=== PATIENT | male | born 1955 | race Hispanic/Latino ===

== ENCOUNTER 2018-11-19 21:43 | Emergency (ER) | payer BC ==
[2018-11-19 21:43] VITALS: BMI 30.4
[2018-11-19 22:05] VITALS: RESP 18
--- NOTE | 2018-11-19 22:07 | ED PDOC ---
Arrival/HPI <Haley Gaytan PA-C - Last Filed: 11/22/18 22:21> - General Historian: Patient - History of Present Illness Narrative History of Present Illness (Text): 11/19/18 22:05 63 year old male, whose past medical history includes neuropathy, hypertension, hypercholestremia, and GERD, presents to the emergency department complaining of 103 fever today. Patient states he has a toothache on the right lower molar where it radiates to the right jaw and right ear. Patient states he called his dentist from [facility] who prescribed Tylenol Codeine because he is not able to see patient until tomorrow. Patient last took the Tylenol Codeine 5-6 hours ago. The patient denies any chills, chest pain, shortness of breath, abdominal pain, nausea, vomiting, diarrhea, urinary symptoms, back pain, neck pain, headache, dizziness, or any other complaints. Symptom Onset: Gradual Symptom Course: Unchanged Activities at Onset: Light Context: Home <Benigno Lugo - Last Filed: 11/23/18 09:45> - General Chief Complaint: Dental Pain Time Seen by Provider: 11/19/18 21:58 Past Medical History - Provider Review Nursing Documentation Reviewed: Yes - Infectious Disease Hx of Infectious Diseases: None - Tetanus Immunization Tetanus Immunization: Unknown - Cardiac Hx Hypertension: Yes - Pulmonary Hx Respiratory Disorders: No - Neurological Hx Neurological Disorder: No - HEENT Hx HEENT Disorder: No - Renal Hx Renal Disorder: No - Endocrine/Metabolic Hx Endocrine Disorders: No - Hematological/Oncological Hx Blood Disorders: No - Integumentary Hx Dermatological Disorder: No - Musculoskeletal/Rheumatological Hx Arthritis: Yes Other/Comment: demyelinating degenarative peripheral neuropathy - Gastrointestinal Hx Gastrointestinal Disorders: Yes Hx Gastroesophageal Reflux: Yes - Genitourinary/Gynecological Hx Genitourinary Disorders: No - Psychiatric Hx Psychophysiologic Disorder: No Hx Anxiety: No Hx Bipolar Disorder: No Hx Depression: No Hx Emotional Abuse: No Hx Hallucinations: No Hx Panic Disorder: No Hx Post Traumatic Stress Disorder: No Hx Psychosis: No Hx Physical Abuse: No Hx Schizophrenia: No Hx Sexual Abuse: No Hx Substance Use: No - Surgical History Hx Orthopedic Surgery: Yes (KNEE) - Anesthesia Hx Anesthesia: Yes Hx Anesthesia Reactions: No Hx Malignant Hyperthermia: No - Suicidal Assessment Feels Threatened In Home Enviroment: No <Benigno Lugo Last Filed: 11/23/18 09:45> Family/Social History - Physician Review Nursing Documentation Reviewed: Yes Family/Social History: No Known Family HX Smoking Status: Former Smoker Hx Alcohol Use: Yes Hx Substance Use: No Hx Substance Use Treatment: No <Benigno Lugo - Last Filed: 11/23/18 09:45> Allergies/Home Meds <Haley Gaytan PA-C - Last Filed: 11/22/18 22:21> <Benigno Lugo - Last Filed: 11/23/18 09:45> Allergies/Adverse Reactions: Allergies Penicillins Allergy (Verified 11/19/18 21:58) ANAPHYLAXIS Home Medications: Home Meds Medication Instructions Recorded Confirmed Esomeprazole Magnesium [Nexium] 1 tab PO DAILY 10/08/13 11/19/18 Gabapentin [Neurontin] 600 mg PO TID 10/08/13 11/19/18 Diltiazem HCl [Cardizem] 180 mg PO DAILY 09/26/15 11/19/18 Acetaminophen with Codeine 1 tab PO Q6H PRN 11/19/18 11/19/18 [Tylenol with Codeine #3 Tablet] Amitriptyline [Elavil] 50 mg PO HS 11/19/18 11/19/18 Ibuprofen [Motrin Tab] 600 mg PO Q6H PRN 11/19/18 11/19/18 Losartan/Hydrochlorothiazide 1 tab PO DAILY 11/19/18 11/19/18 [Losartan-Hctz 100-25 mg Tab] Review of Systems - Physician Review All systems were reviewed & negative as marked: Yes - Review of Systems Constitutional: Fevers. absent: Other (Chills) ENT: Other (Right toothache radiates to right jaw and right ear) Respiratory: absent: SOB Cardiovascular: absent: Chest Pain Gastrointestinal: absent: Abdominal Pain, Diarrhea, Nausea, Vomiting Genitourinary Male: absent: Dysuria, Frequency, Hematuria Musculoskeletal: absent: Back Pain, Neck Pain Neurological: absent: Headache, Dizziness <Benigno Lugo - Last Filed: 11/23/18 09:45> Physical Exam Vital Signs Temp Pulse Resp BP Pulse Ox 11/20/18 00:35 99.5 F 90 18 124/85 96 11/19/18 23:30 99.7 F H 98 H 18 139/86 95 11/19/18 22:20 102 F H 11/19/18 21:55 100.8 F H 106 H 18 154/96 H 95 <Haley Gaytan PA-C - Last Filed: 11/22/18 22:21> Vital Signs Reviewed: Yes Vital Signs Temp Pulse Resp BP Pulse Ox 11/19/18 21:55 100.8 F H 106 H 18 154/96 H 95 Temperature: Febrile Blood Pressure: Hypertensive Pulse: Tachycardic Respiratory Rate: Normal Appearance: Positive for: Well-Appearing, Non-Toxic, Comfortable Pain Distress: None Mental Status: Positive for: Alert and Oriented X 3 - Systems Exam Head: Present: Atraumatic, Normocephalic Pupils: Present: PERRL Extroacular Muscles: Present: EOMI Conjunctiva: Present: Normal Ears: Present: Normal, NORMAL TM Mouth: Present: Moist Mucous Membranes, Other (right lower dentition tender to palpation ) Neck: Present: Normal Range of Motion Respiratory/Chest: Present: Clear to Auscultation, Good Air Exchange. No: Respiratory Distress, Accessory Muscle Use Cardiovascular: Present: Regular Rate and Rhythm, Normal S1, S2. No: Murmurs Neurological: Present: GCS=15, CN II-XII Intact, Speech Normal Skin: Present: Warm, Dry, Normal Color. No: Rashes Psychiatric: Present: Alert, Oriented x 3, Normal Insight, Normal Concentration <Benigno Lugo - Last Filed: 11/23/18 09:45> Medical Decision Making - Lab Interpretations Microbiology Results: Microbiology Results 11/19/18 23:00 Blood-Venous Blood Culture - Preliminary Gram Positive Cocci 11/19/18 23:00 Blood-Venous Gram Stain - Final 11/19/18 22:21 Blood-Venous Blood Culture - Preliminary NO GROWTH AFTER 48 HOURS Lab Results: 11/19/18 22:25 11/19/18 22:25 Lab Results 11/19/18 22:25: Sodium 137, Potassium 3.8, Chloride 101, Carbon Dioxide 27, Anion Gap 13, BUN 17, Creatinine 1.1, Est GFR ( Amer) > 60, Est GFR (Non- Af Amer) > 60, Random Glucose 135 H, Calcium 9.0, Total Bilirubin 0.6, AST 40, ALT 37, Alkaline Phosphatase 92, Total Protein 7.9, Albumin 4.1, Globulin 3.8, Albumin/Globulin Ratio 1.1 11/19/18 22:25: WBC 7.3, RBC 5.07, Hgb 14.9, Hct 44.3, MCV 87.4, MCH 29.4, MCHC 33.6, RDW 14.2, Plt Count 264, MPV 9.7, Gran % 79.3 H, Lymph % (Auto) 6.5 L, Haralson % (Auto) 13.5 H, Eos % (Auto) 0.3 L, Baso % (Auto) 0.4, Gran # 5.81, Lymph # (Auto) 0.5 L, Haralson # (Auto) 1.0 H, Eos # (Auto) 0.0, Baso # (Auto) 0.03 11/19/18 22:21: Influenza Typ A,B (EIA) Negative for flu a/b - RAD Interpretation Radiology Orders: 11/19/18 22:10 MAXILLOFACIAL W/O CONTRAST [CT] Stat - Medication Orders Current Medication Orders: Discontinued Medications Acetaminophen (Tylenol 325mg Tab) 650 mg PO STAT STA Stop: 11/19/18 22:12 Last Admin: 11/19/18 22:20 Dose: 650 mg MAR Pain/Vitals Document 11/19/18 22:20 RG (Rec: 11/19/18 22:20 [id number]) Sleep Is patient sleeping during reassessment? No Vitals Temperature (97.6 F-99.6 F) 102 F Temperature Source Oral Acetaminophen (Tylenol 325mg Tab) 650 mg PO STAT STA Stop: 11/19/18 22:13 Last Admin: 11/19/18 22:50 Dose: Not Given Non-Admin Reason: Patient Refused Clindamycin Phosphate (Cleocin) 600 mg in 50 mls @ 50 mls/hr IVPB STAT STA; Protocol Stop: 11/19/18 23:12 Last Admin: 11/19/18 22:49 Dose: 50 mls/hr eMAR Start Stop Document 11/19/18 22:49 RG (Rec: 11/19/18 22:50 [email or web address]) Intravenous Solution Start Date 11/19/18 Start Time 22:49 <Haley Gaytan PA-C - Last Filed: 11/22/18 22:21> ED Course and Treatment: 11/19/18 22:07 Impression: 63 year old male presents complaining of 103 fever associated with right lower molar pain that radiates to right jaw and right ear. Plan: -- CT Maxillofacial -- labs -- Cleocin, Tylenol -- Blood Culture -- Influenza A B -- Reassess and disposition Progress Notes: EXAM: CT Maxillofacial without Intravenous Contrast. Electronically signed on Nov 20, 2018 12:28:05 AM EST by: Calvin Edgar M.D IMPRESSION: 1. Several bubbles of air are noted adjacent to right wisdom tooth suspicious for an abscess. 2. Bilateral ethmoid and maxillary sinusitis is noted. 11/20/18 01:12 On reevaluation the patient is in no acute distress. I have discussed the results and plan with the patient, who expresses understanding. Patient given the opportunity to ask question, all questions were answered and there is agreement with the plan to discharge the patient home. Patient is stable for discharge. Patient was instructed to follow up with physician/clinic in 1-2 days or return if symptoms persist/worsen or new concerning symptoms arise. - Lab Interpretations I have reviewed the lab results: Yes <Benigno Lugo - Last Filed: 11/23/18 09:45> - Scribe Statement The provider has reviewed the documentation as recorded by the Nathan De La Cruz Provider Scribe Attestation: All medical record entries made by the Scribe were at my direction and personally dictated by me. I have reviewed the chart and agree that the record accurately reflects my personal performance of the history, physical exam, medical decision making, and the department course for this patient. I have also personally directed, reviewed, and agree with the discharge instructions and disposition. <Benigno Lugo - Last Filed: 11/23/18 09:45> Disposition/Present on Arrival - Notes Notes (Text): 11/22/18 22:21 Pt called, his Palma answered, she states that the patient is sleeping, blood cx results d/w her, notified of gram + cocci in chains d/w her. She states that the patient no longer has a fever, he went to his dentist, who referred him to an oral surgeon and had his tooth removed, his facial swelling has decreased. advised to have the patient f/u with his pmd Dr. Amanda for outpt repeat of blood cx. She verbalize understanding of instructions and will make sure that the patient follows up. <Haley Gaytan PA-C - Last Filed: 11/22/18 22:21> - Present on Arrival Any Indicators Present on Arrival: No History of DVT/PE: No History of Uncontrolled Diabetes: No Urinary Catheter: No History of Decub. Ulcer: No History Surgical Site Infection Following: None - Disposition Have Diagnosis and Disposition been Completed?: Yes Disposition Time: 01:10 <Benigno Lugo - Last Filed: 11/23/18 09:45> - Disposition Diagnosis: Dental abscess Disposition: HOME/ ROUTINE Condition: IMPROVED Discharge Instructions (ExitCare): Tooth Abscess (DC) Additional Instructions: follow up with your dentist in am Prescriptions: Clindamycin [Cleocin] 300 mg PO TID #21 cap Forms: [facility] (Maori), WORK NOTE
[2018-11-19 22:46] LABS: BASO # 0.03 K/mm3 (0.0-2.0); BASO % 0.4 % (0.0-3.0); EOS % 0.3 % (1.5-5.0); GRAN # 5.81 (1.4-6.5); GRAN % 79.3 % (50.0-68.0); HEMOGLOBIN 14.9 g/dL (14.0-18.0); LYMPH # 0.5 (1.2-3.4); LYMPH % 6.5 % (22.0-35.0); MEAN CELL VOLUME 87.4 fl (80.0-105.0); MEAN CORPUSCULAR HEMOGLOBIN 29.4 pg (25.0-35.0); MEAN CORPUSCULAR HGB CONC 33.6 g/dl (31.0-37.0); MEAN PLATELET VOLUME 9.7 fl (7.0-11.0); MONO % 13.5 % (1.0-6.0); RBC 5.07 10^6/uL (3.5-6.1); RED CELL DISTRIBUTION WIDTH 14.2 % (11.5-14.5); WHITE BLOOD COUNT 7.3 10^3/uL (4.5-11.0)
[2018-11-19 22:47] LABS: ALB/GLOB RATIO 1.1 (1.1-1.8); ALBUMIN 4.1 g/dL (3.0-4.8); ALT/SGPT 37 U/L (7-56); AST/SGOT 40 U/L (17-59); BLOOD UREA NITROGEN 17 mg/dL (7-21); GFR NON-AFRICAN AMERICAN > 60
[2018-11-19] MEDS: Clindamycin 600mg/50ml D5W 600 MG/50 ML VIAL IVPB STA (22:49)
[2018-11-20 00:35] VITALS: BP 124/85; PULSE 90; TEMP 99.5; O2SAT 96
--- NOTE | 2018-11-20 10:00 | CT ---
Date of service: 11/19/2018 PROCEDURE: CT MAXILLOFACIAL BONES WITHOUT CONTRAST HISTORY: rt dental pain COMPARISON: None available. TECHNIQUE: Contiguous axial CT images of the maxillofacial bones were obtained. Coronal and sagittal reformats were generated. Radiation dose: Total exam DLP = 864.82 mGy-cm. This CT exam was performed using one or more of the following dose reduction techniques: Automated exposure control, adjustment of the mA and/or kV according to patient size, and/or use of iterative reconstruction technique. FINDINGS: NASAL BONES: Unremarkable. ORBITS: Unremarkable. PARANASAL SINUSES/ MASTOIDS: Bilateral ethmoid and maxillary mucoperiosteal sinus disease. MAXILLA: Several air bubbles noted in the this in the of the right within tooth suspicious for an abscess. MANDIBLE/ TEMPOROMANDIBULAR JOINTS: Unremarkable. SKULL BASE: Unremarkable. TEMPORAL BONES: Middle ears and mastoid grossly unremarkable. OTHER FINDINGS: None. IMPRESSION: Several air bubbles noted in the this in the of the right within tooth suspicious for an abscess. Recommend dental consultation.
== END 2018-11-20 01:16 | disposition home or self-care (01) ==
LOC: ED 21:43
DX: K04.7 Periapical abscess without sinus (principal); I10 Essential (primary) hypertension; Z87.891 Personal history of nicotine dependence; E78.00 Pure hypercholesterolemia, unspecified

== ENCOUNTER 2019-03-19 14:34 | Outpatient (CLI) | payer BC | END 2019-03-19 14:35 | disposition home or self-care (01) | LOC: CARDIO 14:34 ==

== ENCOUNTER 2019-04-11 16:35 | Inpatient (IN) | payer BC ==
[2019-04-11 16:38] VITALS: BMI 31.1
[2019-04-11] MEDS ORDERED: Sodium Chloride 0.9% 1,000 ML IV SCH (17:00)
--- NOTE | 2019-04-11 17:00 | ED PDOC ---
Arrival/HPI - General Chief Complaint: GI Problem Time Seen by Provider: 04/11/19 16:38 - History of Present Illness Narrative History of Present Illness (Text): 04/11/19 16:58 A 64 year old male, whose past medical history includes hypertension and herni ated discs presents to the ED complaining of lower abdominal pain since this morning. Patient reports associated bloating and bright red GI bleed. Patient notes he had a colonoscopy 3 years ago, which was normal. Patient denies any fevers, chills, headache, dizziness, chest pain, shortness of breath, dyspnea on exertion, cough, nausea, vomiting, back pain, neck pain, or any other complaints. PMD: Dr. Amanda GI: Dr. Lu [employer] Supervisor: Dr. Flores Time/Duration: 24 hours Symptom Onset: Gradual Symptom Course: Unchanged Activities at Onset: Light Context: Home Past Medical History - Provider Review Nursing Documentation Reviewed: Yes - Infectious Disease Hx of Infectious Diseases: None - Tetanus Immunization Tetanus Immunization: Unknown - Cardiac Hx Hypertension: Yes - Pulmonary Hx Respiratory Disorders: No - Neurological Hx Neurological Disorder: No - HEENT Hx HEENT Disorder: No - Renal Hx Renal Disorder: No - Endocrine/Metabolic Hx Endocrine Disorders: No - Hematological/Oncological Other/Comment: Monoclonal gammopathy of undetermined significance (MGUS) - Integumentary Hx Dermatological Disorder: No - Musculoskeletal/Rheumatological Hx Arthritis: Yes Other/Comment: demyelinating degenarative peripheral neuropathy - Gastrointestinal Hx Gastrointestinal Disorders: Yes Hx Gastroesophageal Reflux: Yes - Genitourinary/Gynecological Hx Genitourinary Disorders: No - Psychiatric Hx Psychophysiologic Disorder: No Hx Anxiety: No Hx Bipolar Disorder: No Hx Depression: No Hx Emotional Abuse: No Hx Hallucinations: No Hx Panic Disorder: No Hx Post Traumatic Stress Disorder: No Hx Psychosis: No Hx Physical Abuse: No Hx Schizophrenia: No Hx Sexual Abuse: No Hx Substance Use: No - Surgical History Hx Orthopedic Surgery: Yes (KNEE) - Anesthesia Hx Anesthesia: Yes Hx Anesthesia Reactions: No Hx Malignant Hyperthermia: No - Suicidal Assessment Feels Threatened In Home Enviroment: No Family/Social History - Physician Review Nursing Documentation Reviewed: Yes Family/Social History: Unknown Family HX Smoking Status: Former Smoker Hx Alcohol Use: Yes Frequency of alcohol use: Socially Hx Substance Use: No Hx Substance Use Treatment: No Allergies/Home Meds Allergies/Adverse Reactions: Allergies Penicillins Allergy (Verified 04/11/19 16:46) ANAPHYLAXIS Home Medications: Home Meds Medication Instructions Recorded Confirmed Diltiazem HCl [Cardizem] 180 mg PO DAILY 09/26/15 04/11/19 Amitriptyline [Elavil] 50 mg PO HS 11/19/18 04/11/19 Losartan/Hydrochlorothiazide 1 tab PO DAILY 11/19/18 04/11/19 [Losartan-Hctz 100-25 mg Tab] Fluticasone/Vilanterol 100/25 1 puff NEB DAILY 04/11/19 04/11/19 [Breo Ellipta 100-25 MCG INH] Gabapentin [Neurontin] 600 mg PO TID 04/11/19 04/11/19 Review of Systems - Physician Review All systems were reviewed & negative as marked: Yes - Review of Systems Constitutional: absent: Fatigue Eyes: absent: Vision Changes ENT: absent: Hearing Changes Respiratory: absent: SOB, Cough Cardiovascular: absent: Chest Pain Gastrointestinal: Abdominal Pain, Hematochezia. absent: Nausea, Vomiting Genitourinary Male: absent: Dysuria, Hematuria Musculoskeletal: absent: Back Pain, Neck Pain Skin: absent: Rash Neurological: absent: Headache, Dizziness Endocrine: absent: Diaphoresis Hemo/Lymphatic: absent: Adenopathy Psychiatric: absent: Anxiety, Depression Physical Exam Vital Signs Reviewed: Yes Vital Signs Temp Pulse Resp BP Pulse Ox 04/11/19 16:37 97.9 F 95 H 18 143/90 96 Temperature: Afebrile Blood Pressure: Normal Pulse: Regular Respiratory Rate: Normal Appearance: Positive for: Well-Appearing, Non-Toxic, Comfortable Pain Distress: None Mental Status: Positive for: Alert and Oriented X 3 - Systems Exam Head: Present: Atraumatic, Normocephalic Pupils: Present: PERRL Extroacular Muscles: Present: EOMI Conjunctiva: Present: Normal Respiratory/Chest: Present: Clear to Auscultation, Good Air Exchange. No: Respiratory Distress, Accessory Muscle Use Cardiovascular: Present: Regular Rate and Rhythm, Normal S1, S2. No: Murmurs Abdomen: Present: Tenderness (left side), Guarding. No: Rebound Rectal: Present: Gross Blood, Other (Guaiac positive). No: Hemorrhoids, Fissures Neurological: Present: GCS=15, CN II-XII Intact, Speech Normal Psychiatric: Present: Alert, Oriented x 3, Normal Insight, Normal Concentration Medical Decision Making ED Course and Treatment: 04/11/19 17:03 Impression: A 64 year old male presents to the ED for abdominal pain with associated rectal bleeding. Differential Diagnosis included but are not limited to: Diverticulitis vs diverticulosis vs GI bleed. Plan: -- EKG -- Labs -- Chest X-Ray -- Protonix injection -- IV Fluids -- Reassess and disposition Prior Visits: Notes and results from previous visits were reviewed. Patient was last seen in the emergency department on Progress Notes: Rectal exam chaperoned by scribe. 04/11/19 17:35 Chest X-Ray IMPRESSION: No active pulmonary disease. 04/11/19 19:[address] Pain controlled. Signed out to Dr. Singh to f/u CT, reevaluate and disposition. - RAD Interpretation Radiology Orders: 04/11/19 16:52 CHEST PORTABLE [RAD] Stat - Medication Orders Current Medication Orders: Sodium Chloride (Sodium Chloride 0.9%) 1,000 mls @ 100 mls/hr IV .Q10H NITIN Discontinued Medications Pantoprazole Sodium (Protonix Inj) 80 mg IVP STAT STA Stop: 04/11/19 16:53 - Scribe Statement The provider has reviewed the documentation as recorded by the Nathan Olmstead Provider Scribe Attestation: All medical record entries made by the Scribe were at my direction and per sonally dictated by me. I have reviewed the chart and agree that the record accurately reflects my personal performance of the history, physical exam, medical decision making, and the department course for this patient. I have also personally directed, reviewed, and agree with the discharge instructions and disposition. Disposition/Present on Arrival - Present on Arrival Any Indicators Present on Arrival: No History of DVT/PE: No History of Uncontrolled Diabetes: No Urinary Catheter: No History of Decub. Ulcer: No History Surgical Site Infection Following: None - Disposition Have Diagnosis and Disposition been Completed?: Yes Diagnosis: GI bleed Disposition Time: 19:33 Condition: FAIR Referrals: Brandyn Amanda MD [Primary Care Provider] - Follow up with primary Forms: [email or web address] (Thai)
[2019-04-11 17:14] LABS: BASO # 0.05 K/mm3 (0.0-2.0); BASO % 0.3 % (0.0-3.0); EOS # 0.1 (0.0-0.7); EOS % 0.5 % (1.5-5.0); HEMOGLOBIN 15.8 g/dL (14.0-18.0); LYMPH # 1.4 (1.2-3.4); LYMPH % 7.7 % (22.0-35.0); MEAN CELL VOLUME 87.1 fl (80.0-105.0); MEAN CORPUSCULAR HEMOGLOBIN 29.2 pg (25.0-35.0); MEAN CORPUSCULAR HGB CONC 33.5 g/dl (31.0-37.0); MEAN PLATELET VOLUME 9.5 fl (7.0-11.0); MONO # 1.9 (0.1-0.6); MONO % 10.5 % (1.0-6.0); RBC 5.41 10^6/uL (3.5-6.1); RED CELL DISTRIBUTION WIDTH 14.7 % (11.5-14.5); WHITE BLOOD COUNT 18.2 10^3/uL (4.5-11.0)
--- NOTE | 2019-04-11 17:16 | RAD ---
Date of service: 04/11/2019 HISTORY: Abdominal pain COMPARISON: 10/08/2013. FINDINGS: LUNGS: The lungs are well inflated and clear. PLEURA: No pleural effusions or pneumothorax. CARDIOVASCULAR: The heart is normal in size. No aortic atherosclerotic calcifications present. OSSEOUS STRUCTURES: Within normal limits for the patient's age. VISUALIZED UPPER ABDOMEN: Normal. OTHER FINDINGS: None. IMPRESSION: No active pulmonary disease.
[2019-04-11 17:22] LABS: INR 1.05; PARTIAL THROMBOPLASTIN TIME 31.8 Seconds (26.9-38.3); PROTHROMBIN TIME 11.7 SECONDS (9.4-12.5)
[2019-04-11 17:25] LABS: ALB/GLOB RATIO 1.1 (1.1-1.8); ALBUMIN 4.5 g/dL (3.0-4.8); ALT/SGPT 32 U/L (7-56); AMYLASE 87 U/L (35-125); AST/SGOT 39 U/L (17-59); BLOOD UREA NITROGEN 16 mg/dL (7-21); CALCIUM 9.9 mg/dL (8.4-10.5); GFR NON-AFRICAN AMERICAN > 60; LIPASE 100 U/L (23-300)
[2019-04-11] MEDS ORDERED: Iohexol 240 (50 ml) ONE (18:08)
[2019-04-11] MEDS ORDERED: Iohexol 350 MG/100 ML VIAL ONE (20:04)
[2019-04-11] MEDS ORDERED: metroNIDAZOLE IV 500 mg/100 ml 500 MG/100 ML BAG IVPB STA (21:56)
[2019-04-11] MEDS ORDERED: Aztreonam 1 Gm in NS 100mL 100 ML IVPB STA (21:56)
[2019-04-11] MEDS ORDERED: Sodium Chloride 0.9% 1,000 ML IV ONE (21:56)
[2019-04-11] MEDS ORDERED: Lactated Ringer's 1,000 ML IV SCH (22:15)
--- NOTE | 2019-04-11 22:15 | ED PDOC ---
Physical Exam Vital Signs Temp Pulse Resp BP Pulse Ox 04/11/19 20:53 86 18 138/83 96 04/11/19 16:37 97.9 F 95 H 18 143/90 96 Medical Decision Making ED Course and Treatment: 04/11/19 20:00 Case endorsed to me by Dr. Bailey. Patient currently awaiting CT Abd/Pelvis res ults, reevaluate and disposition. 04/11/2019 21:23 Abd/Pelvis CT IMPRESSION: 1. Severe left colitis as above. Pericolonic stranding and fluid in the left paracolic gutter. Follow up with colonoscopy is recommended. 2. There are several scattered diverticuli noted involving descending and sigmoid colon. No evidence of acute diverticulitis. 3. Prostate gland is moderately enlarged and contains calcifications. Please correlate with PSA levels. Dictator: Calvin Edgar MD 04/11/19 22:[address] Amanda, who states to give patient antibiotics. Patient to be admitted to med/surg. - Lab Interpretations Lab Results: PT 11.7 SECONDS (9.4-12.5) 04/11/19 17:00 INR 1.05 04/11/19 17:00 APTT 31.8 Seconds (26.9-38.3) 04/11/19 17:00 Total Bilirubin 0.6 mg/dL (0.2-1.3) 04/11/19 17:00 AST 39 U/L (17-59) 04/11/19 17:00 ALT 32 U/L (7-56) 04/11/19 17:00 Alkaline Phosphatase 87 U/L (38-126) 04/11/19 17:00 Total Protein 8.5 g/dL (5.8-8.3) H 04/11/19 17:00 Albumin 4.5 g/dL (3.0-4.8) 04/11/19 17:00 Globulin 4.0 gm/dL 04/11/19 17:00 Albumin/Globulin Ratio 1.1 (1.1-1.8) 04/11/19 17:00 Amylase 87 U/L (35-125) 04/11/19 17:00 Lipase 100 U/L (23-300) 04/11/19 17:00 - RAD Interpretation Radiology Orders: 04/11/19 16:52 CHEST PORTABLE [RAD] Stat 04/11/19 17:29 ABD PELVIS PO & IV CONTRAST [CT] Stat - Medication Orders Current Medication Orders: Sodium Chloride (Sodium Chloride 0.9%) 1,000 mls @ 100 mls/hr IV .Q10H NITIN Last Admin: 04/11/19 17:08 Dose: 100 mls/hr eMAR Start Stop Document 04/11/19 17:08 GMD (Rec: 04/11/19 17:08 GMD [id number]) Intravenous Solution Start Date 04/11/19 Start Time 17:08 Aztreonam (Azactam 1 Gm) 100 mls @ 100 mls/hr IVPB STAT STA; Protocol Stop: 04/11/19 22:55 Metronidazole (Flagyl) 500 mg in 100 mls @ 100 mls/hr IVPB STAT STA; Protocol Stop: 04/11/19 22:55 Sodium Chloride (Sodium Chloride 0.9%) 1,000 mls @ 125 mls/hr IV .Q8H ONE Stop: 04/12/19 05:55 Discontinued Medications Pantoprazole Sodium (Protonix Inj) 80 mg IVP STAT STA Stop: 04/11/19 16:53 Last Admin: 04/11/19 17:08 Dose: 80 mg IVP Administration Document 04/11/19 17:08 GMD (Rec: 04/11/19 17:09 GMD [id number]) Charges for Administration # of IVP Administrations 1 - Scribe Statement The provider has reviewed the documentation as recorded by the Nathan Rodriguez Provider Scribe Attestation: All medical record entries made by the Kimberlyibakash were at my direction and personally dictated by me. I have reviewed the chart and agree that the record accurately reflects my personal performance of the history, physical exam, medical decision making, and the department course for this patient. I have also personally directed, reviewed, and agree with the discharge instructions and disposition. Disposition/Present on Arrival - Present on Arrival Any Indicators Present on Arrival: No History of DVT/PE: No History of Uncontrolled Diabetes: No Urinary Catheter: No History of Decub. Ulcer: No History Surgical Site Infection Following: None - Disposition Have Diagnosis and Disposition been Completed?: Yes Diagnosis: GI bleed Disposition: HOSPITALIZED Disposition Time: 22:00 Patient Problems: Current Active Problems Problem Status Onset GI bleed Acute Condition: FAIR
[2019-04-11 22:30] LABS: VENOUS BLOOD GAS PO2 45 mm/Hg (30-55); VENOUS BLOOD PH 7.38 (7.32-7.43)
--- NOTE | 2019-04-11 23:08 | CP.PCM.HP ---
History of Present Illness - History of Present Illness History of Present Illness: Niall Arrington, PGY1 H&P for Dr. Amanda cc: "lower abdominal pain and BRBPR" Patient is a 64 year old male, whose PMHx includes HTN, HLD, GERD, Peripheral Neuropathy, and herniated discs who presented to the ED complaining of lower abdominal pain with associated bloating and bright red blood per rectum since this morning. Patient said the last time he had these symptoms was many years ago. He denies any recent fevers, chills, nausea, vomiting, diarrhea, urinary frequency/urgency/dysuria, unintentional weight loss, fatigue, night sweats. No recent antibiotic use. Patient says that his last colonoscopy was with his GI doctor (Dr. Lu) about 2 years ago and it did not show malignancy however it did note diverticulosis. No changes in diet, otherwise prior to this admission bowel and bladder has been regular. A full 12 point ROS was conducted and unremarkable except as stated above. PMD: Dr. Amanda GI: Dr. Lu Prepleater: Dr. Flores PMHx: HTN, HLD, GERD, Peripheral Neuropathy, and herniated discs PSHx: knee surgery (10 years ago) Meds: see JAN Allergies: PCN SocialHx: social drinker. Former smoker for 30 years, quit 15 years ago. Denies illicit drug use. Lives with family. FamHx: non-contributory. No GI malignancy in family. Present on Admission - Present on Admission Any Indicators Present on Admission: No Review of Systems - Review of Systems All systems: reviewed and no additional remarkable complaints except (as per HPI) Past Patient History - Infectious Disease Hx of Infectious Diseases: None - Tetanus Immunizations Tetanus Immunization: Unknown - Past Social History Smoking Status: Former Smoker - CARDIAC Hx Hypertension: Yes - PULMONARY Hx Respiratory Disorders: No - NEUROLOGICAL Hx Neurological Disorder: No - HEENT Hx HEENT Problems: No - RENAL Hx Chronic Kidney Disease: No - ENDOCRINE/METABOLIC Hx Endocrine Disorders: No - HEMATOLOGICAL/ONCOLOGICAL Other/Comment: Monoclonal gammopathy of undetermined significance (MGUS) - INTEGUMENTARY Hx Dermatological Problems: No - MUSCULOSKELETAL/RHEUMATOLOGICAL Hx Arthritis: Yes Other/Comment: demyelinating degenarative peripheral neuropathy - GASTROINTESTINAL Hx Gastrointestinal Disorders: Yes Hx Gastroesophageal Reflux: Yes - GENITOURINARY/GYNECOLOGICAL Hx Genitourinary Disorders: No - PSYCHIATRIC Hx Psychophysiologic Disorder: No Hx Anxiety: No Hx Bipolar Disorder: No Hx Depression: No Hx Emotional Abuse: No Hx Hallucinations: No Hx Panic Symptoms: No Hx Post Traumatic Stress Disorder: No Hx Psychosis: No Hx Physical Abuse: No Hx Schizophrenia: No Hx Sexual Abuse: No Hx Substance Use: No - SURGICAL HISTORY Hx Orthopedic Surgery: Yes (KNEE) - ANESTHESIA Hx Anesthesia: Yes Hx Anesthesia Reactions: No Hx Malignant Hyperthermia: No Meds Allergies/Adverse Reactions: Allergies Allergy/AdvReac Type Severity Reaction Status Date / Time Penicillins Allergy ANAPHYLAXIS Verified 04/11/19 16:46 Physical Exam - Constitutional Appears: Non-toxic, No Acute Distress - Head Exam Head Exam: ATRAUMATIC, NORMAL INSPECTION, NORMOCEPHALIC - Eye Exam Eye Exam: EOMI, Normal appearance - ENT Exam ENT Exam: Mucous Membranes Moist - Respiratory Exam Respiratory Exam: Clear to Auscultation Bilateral. absent: Accessory Muscle Use, Chest Wall Tenderness, Rales, Rhonchi, Wheezes, Respiratory Distress, Stridor - Cardiovascular Exam Cardiovascular Exam: RRR, +S1, +S2 - GI/Abdominal Exam GI & Abdominal Exam: Normal Bowel Sounds, Soft, Tenderness (Mild tenderness to palpation of the LLQ ). absent: Firm, Guarding, Hernia, Rebound, Rigid - Rectal Exam Rectal Exam: Bloody Stool (Gross blood was noted. ). absent: Hemorrhoids Additional comments: No anal fissures noted - Extremities Exam Extremities exam: Positive for: normal capillary refill, normal inspection, pedal pulses present. Negative for: calf tenderness, tenderness - Back Exam Back exam: absent: CVA tenderness (L), CVA tenderness (R) - Neurological Exam Neurological exam: Alert, CN II-XII Intact, Normal Gait, Oriented x3 - Psychiatric Exam Psychiatric exam: Normal Affect, Normal Mood - Skin Skin Exam: Dry, Intact, Normal Color, Warm Results - Vital Signs Recent Vital Signs: Last Vital Signs Temp 97.9 F 04/11/19 16:37 Pulse 86 04/11/19 20:53 Resp 18 04/11/19 20:53 BP 138/83 04/11/19 20:53 Pulse Ox 96 04/11/19 20:53 - Labs Result Diagrams: 04/11/19 17:00 04/11/19 17:00 Labs: Laboratory Results - last 24 hr 04/11/19 04/11/1904/11/19 17:00 17:00 17:00 WBC 18.2 H D RBC 5.41 Hgb 15.8 Hct 47.1 MCV 87.1 MCH 29.2 MCHC 33.5 RDW 14.7 H Plt Count 328 MPV 9.5 Neut % (Auto) 81.0 H Lymph % (Auto) 7.7 L Jefferson % (Auto) 10.5 H Eos % (Auto) 0.5 L Baso % (Auto) 0.3 Lymph # (Auto) 1.4 Jefferson # (Auto) 1.9 H Eos # (Auto) 0.1 Baso # (Auto) 0.05 Absolute Neuts (auto) 14.75 H PT 11.7 INR 1.05 APTT 31.8 pO2 VBG pH VBG pCO2 VBG HCO3 VBG Total CO2 VBG O2 Sat (Calc) VBG Base Excess VBG Potassium Glucose Lactate FiO2 Sodium 139 Potassium 4.0 Chloride 98 Carbon Dioxide 31 Anion Gap 14 BUN 16 Creatinine 1.0 Est GFR ( Amer) > 60 Est GFR (Non-Af Amer) > 60 Random Glucose 93 Calcium 9.9 Total Bilirubin 0.6 AST 39 ALT 32 Alkaline Phosphatase 87 Total Protein 8.5 H Albumin 4.5 Globulin 4.0 Albumin/Globulin Ratio 1.1 Amylase 87 Lipase 100 Venous Blood Potassium Blood Type Blood Type Confirm Antibody Screen Crossmatch BBK History Checked 04/11/19 04/11/19 04/11/19 17:00 19:30 22:10 WBC RBC Hgb Hct MCV MCH MCHC RDW Plt Count MPV Neut % (Auto) Lymph % (Auto) Jefferson % (Auto) Eos % (Auto) Baso % (Auto) Lymph # (Auto) Jefferson # (Auto) Eos # (Auto) Baso # (Auto) Absolute Neuts (auto) PT INR APTT pO2 45 VBG pH 7.38 VBG pCO2 49.0 VBG HCO3 29.0 H VBG Total CO2 30.5 H VBG O2 Sat (Calc) 82.9 H VBG Base Excess 3.0 H VBG Potassium 3.3 L Glucose 94 Lactate 1.3 FiO2 21.0 Sodium 133.0 Potassium Chloride 99.0 Carbon Dioxide Anion Gap BUN Creatinine Est GFR ( Amer) Est GFR (Non-Af Amer) Random Glucose Calcium Total Bilirubin AST ALT Alkaline Phosphatase Total Protein Albumin Globulin Albumin/Globulin Ratio Amylase Lipase Venous Blood Potassium 3.3 L Blood Type A POSITIVE Blood Type Confirm A POSITIVE Antibody Screen Negative Crossmatch See Detail BBK History Checked No verified bt Assessment & Plan - Assessment and Plan (Free Text) Assessment: Patient is a 64 year old male, whose PMHx includes HTN, HLD, GERD, Peripheral Neuropathy, and herniated discs who presented to the ED complaining of lower abdominal pain with associated bloating and bright red blood per rectum since this morning. CT A/P showed severe left colitis and several diverticuli. Patient will be admitted to med/surg. Plan: LLQ Abdominal Pain and BRBPR 2/2 Left Sided Colitis and Divertulosis - flagyl and aztreonam for antibx coverage - Liquid diet, advance diet as tolerated - IVF with LR @ 100cc/hr - zofran prn - PTX 40mg IV BID - f/u blood cx - Leukocytosis 18.2, continue to monitor - Hgb 15.8 - stable at this time. Type and screen; and transfer pRBC prn - Toradol 15mg IVP q6 prn for pain control - coag panel wnl - repeat cbc and cmp in morning - orthostatic vital signs - FOBT - frequent vital signs - PSA level - GI on consult (Dr. Lu) - ID on consult (Dr. Machado) - CT A/P w/ PO and IV contrast: severe left colitis. Pericolonic stranding and fluid in the left paracolic gutter. Follow up colonoscopy recommended. Several scattered diverticuli noted in descending and sigmoid colon. No acute diverticulitis. Moderately enlarged prostate gland. HTN - resume home med cardizem Peripheral Neuropathy - resume home med gabapentin and amitriptyline ppx: - SCD - PTX 40mg IV BID Diet: Liquid Dispo: Monitor patient closely on med/surg. Further recs from GI. Case was discussed and reviewed with Attending Physician, Dr. Amanda
--- NOTE | 2019-04-12 01:00 | HP ---
DATE OF EXAM: 04/11/2019 HISTORY OF PRESENT ILLNESS: The patient is a 64-year-old male who presented to the [place] emergency room. According to the triage note, the patient complained of abdominal pain for 3 days with 5 episodes of bleeding in the stool and blood per rectum. According to the ER physician evaluation, the patient presented complaining of lower abdominal pain since morning and also bloating and bright red blood per rectum times five episodes. REVIEW OF SYSTEMS: A 14 system review was done pertinent positive, negative dictated above. The patient was seen lying in the stretcher in stretcher #6. CODE STATUS: Full code. LIVING WILL ADVANCE DIRECTIVE: None. Height is 5 feet 8 inches. Weight is 205. ALLERGIES: PENICILLIN. SOCIAL HISTORY: Positive for former smoking and alcohol use. Denies substance abuse. Denies any communicable transmissible disease. Denies any sexual behavior. PRESENT MEDICATIONS: The patient is on Cardizem CD 180 mg daily, Hyzaar 125 mg daily, Neurontin 600 mg three times a day, Elavil 50 mg at bedtime, and Breo Ellipta 1 puff daily. The patient is on IV immunoglobulin monthly at [facility] for history of combined immune deficiency polyneuropathy. 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 Past medical history is also significant for history of combined immune deficiency peripheral neuropathy, history of monoclonal gammopathy of unknown significance, history of knee surgery, history of former smoker, and history of social alcohol use. The patient's past medical history is also significant for history of thyroid nodules, history of IgM monoclonal gammopathy, history of IgM kappa monoclonal gammopathy, history of right tooth abscess in 2019, history of questionable chronic cholecystitis, history of diverticulosis, history of cholelithiasis with contracted gallbladder, history of L4-L5 right-sided lateral disk protrusion, history of degenerative disk disease and foraminal stenosis of the cervical spine, history of left ventricular ejection fraction of 65%, history of grade 1 abnormal relaxation pattern of the echocardiogram, history of moderately sclerotic aortic valve, history of mildly thickened mitral valve, history of [id number] mitral regurgitation, history of mild tricuspid regurgitation and mild pulmonary hypertension with right ventricular systolic pressure of 40 mmHg, history of mild pulmonic valvular regurgitation, history of uncontrolled hypertension, history of hypovitaminosis D, history of hypertriglyceridemia, history of questionable exertional angina, history of venous stasis of the lower extremity, history of endoscopy, colonoscopy, history of esophagitis, gastritis, history of negative colonoscopy, history of gastrointestinal bleeding, history of right knee arthroscopic surgery, history of exercise-induced chest pain, and history of prediabetes. PHYSICAL EXAMINATION: GENERAL: The patient is seen and examined. VITAL SIGNS: T-max 97.9, heart rate 86-95, blood pressure 143/90 and 138/83, respirations 18, and O2 sat 96%. HEENT: Head; normocephalic and atraumatic. HEENT examination shows pinkish pale conjunctivae. Anicteric sclerae. Dry oral mucosa. NECK: No neck rigidity. CHEST: Kyphosis. LUNGS: Shows no audible crackle, rales, or wheezing. CARDIOVASCULAR: S1 and S2, regular rhythm. Questionable soft systolic murmur left sternal border, right second intercostal space, left second intercostal space. NEUROLOGIC: The patient is alert, awake, and oriented x3. Cranial nerves II through XII intact. Gait examination is not tested. ABDOMEN: Soft. Positive bowel sound. Positive left lower quadrant, left periumbilical, left upper quadrant, and left periumbilical tenderness. Positive voluntary guarding noted. No rebound tenderness noted. No questionable left costovertebral angle tenderness noted. EXTREMITIES: Show trace swelling of the lower extremity. No calf tenderness. No Homans' sign. MUSCULOSKELETAL: Shows a body mass index of 31.2. DIAGNOSTIC DATA: WBC 18.2, hemoglobin/hematocrit 15.8 and 47.1, platelet 328, and granulocytes 81% segs. PT/PTT 11.7 and 31.8. VBG shows a pH of 7.38. Lactate is 1.3. Sodium 139, potassium 4, chloride 98, CO2 of 31, anion gap 14, BUN 16, creatinine 1, GFR greater than 60, glucose 93, and calcium 9.9. LFTs are normal. Total protein of 8.5 with a normal of 8.3. Amylase and lipase are normal. The patient was typed and crossmatched for 2 units PRBC. The patient had a chest x-ray done, which was negative for any active disease, questionable slight cardiomegaly noted. The patient had a CT scan of the abdomen and pelvis done in the emergency room. CAT scan results noted. TREATMENT IN THE EMERGENCY ROOM: The patient was treated in the emergency room with IV fluid and IV Protonix. Blood cultures were ordered. The patient's CAT scan results were reviewed, which was done with oral and IV contrast. IMPRESSION AND PLAN: 1. Left-sided lower abdominal pain with hematochezia. 2. Severe left-sided colitis with left colonic thick-walled with involvement from the splenic flexure through the rectum with luminal narrowing with pericolonic stranding and fluid in the left paracolic gutter with several descending and sigmoid colon diverticulosis. 3. Left paracolic gutter small fluid. 4. Prostatomegaly and prostate calcification. 5. Rectal bleeding with hematochezia. 6. History of hypertension. 7. History of mild pulmonary hypertension. 8. History of hyperlipidemia. 9. History of hypovitaminosis D. 10. 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 The patient will be admitted today to [facility]. The patient has been ordered serial labs typed and crossmatched, PRBC ordered. The patient has been ordered stool for occult blood. The patient has been ordered serial CBC and blood cultures have been ordered. Consultation, Gastroenterology and Infectious Disease. The patient has been typed and crossmatched. The patient has been empirically started on Azactam 1 g IV every 8 hours since THE PATIENT IS PENICILLIN ALLERGIC and Flagyl 500 IV every 8 hours. The patient is started on IV fluid, IV proton pump inhibitor 40 mg IV every 12 hours, and Tylenol p.r.n. The patient was placed on clear liquid diet, Zofran 4 mg IV every 4 hours p.r.n., and incentive spirometry. EKG was ordered in the emergency room, we are awaiting results. Liquid diet has been ordered, SCDs and MIGUE stockings has been ordered. Stool occult blood has been ordered. The patient has been explained about the details of his medical condition, need for hospitalization, all diagnostic test was explained to the patient at length and all questions concerned answered which he acknowledged and understand. At this time, the patient is awaiting for a bed on the floor. The patient was in ER bed 6. At present, the patient's further management will be as per the therapeutic intervention as dictated above and as per the MAR. In addition, the patient's further management will be dependent upon the patient's clinical condition, hemodynamic status, and as per the patient response to therapeutic intervention, as per the patient's diagnostic test results and as per recommendation by Gastroenterology and Infectious Disease and other physicians involved in the care of the patient. Dictated and electronically signed, not read. Brandyn Amanda MD
[2019-04-12] MEDS: metroNIDAZOLE IV 500 mg/100 ml 500 MG/100 ML BAG IVPB SCH ×3 (05:20→22:11)
[2019-04-12] MEDS ORDERED: Aztreonam 1 Gm in NS 100mL 100 ML IVPB SCH (06:00)
[2019-04-12] MEDS: Lactated Ringer's 1,000 ML IV SCH ×2 (06:06→17:11)
[2019-04-12 07:33] LABS: BASO # 0.02 K/mm3 (0.0-2.0); BASO % 0.2 % (0.0-3.0); EOS # 0.1 (0.0-0.7); EOS % 0.4 % (1.5-5.0); HEMOGLOBIN 14.1 g/dL (14.0-18.0); LYMPH # 1.4 (1.2-3.4); LYMPH % 11.8 % (22.0-35.0); MEAN CELL VOLUME 87.1 fl (80.0-105.0); MEAN CORPUSCULAR HEMOGLOBIN 28.3 pg (25.0-35.0); MEAN CORPUSCULAR HGB CONC 32.5 g/dl (31.0-37.0); MEAN PLATELET VOLUME 9.5 fl (7.0-11.0); MONO # 0.6 (0.1-0.6); MONO % 5.5 % (1.0-6.0); RBC 4.98 10^6/uL (3.5-6.1); RED CELL DISTRIBUTION WIDTH 14.9 % (11.5-14.5); WHITE BLOOD COUNT 11.5 10^3/uL (4.5-11.0)
[2019-04-12 07:52] LABS: LDL CHOLESTEROL 86 mg/dL (0-129)
[2019-04-12 07:59] LABS: FREE T4 0.87 ng/dL (0.78-2.19)
[2019-04-12 08:04] LABS: ALB/GLOB RATIO 1.1 (1.1-1.8); ALBUMIN 3.6 g/dL (3.0-4.8); ALT/SGPT 30 U/L (7-56); AST/SGOT 32 U/L (17-59); BILIRUBIN,DIRECT 0.2 mg/dL (0.0-0.4); BLOOD UREA NITROGEN 11 mg/dL (7-21); CALCIUM 8.7 mg/dL (8.4-10.5); GFR NON-AFRICAN AMERICAN > 60; HDL CHOLESTEROL 33 mg/dL (29-60)
--- NOTE | 2019-04-12 08:11 | CT ---
Date of service: 04/11/2019 PROCEDURE: CT Abdomen and Pelvis with contrast HISTORY: abd pain r/o diverticulitis/osis gi bleed COMPARISON: None available. TECHNIQUE: CT scan of the abdomen and pelvis was performed after administration of intravenous contrast. Oral contrast was administered. Coronal and sagittal reformatted images were obtained. Contrast dose: 100 mL Omnipaque 350 Radiation dose: Total exam DLP = 973.39 mGy-cm. This CT exam was performed using one or more of the following dose reduction techniques: Automated exposure control, adjustment of the mA and/or kV according to patient size, and/or use of iterative reconstruction technique. FINDINGS: LOWER THORAX: There is dependent atelectasis in the right lung base. There is a 5 mm subpleural nodule in the right lateral lung base. The visualized left lung is clear. LIVER: Normal in size with homogeneous enhancement. No gross lesion or ductal dilatation. GALLBLADDER AND BILE DUCTS: Well distended. No calcified gallstones, wall thickening or pericholecystic fluid. PANCREAS: Normal in size with homogeneous enhancement. No gross lesion or ductal dilatation. SPLEEN: Normal in size and appearance. ADRENALS: No discrete nodule in the right adrenal gland. There is a 9 mm indeterminate nodule in the left adrenal gland with density in the range of 66 HU. KIDNEYS AND URETERS: Normal in size with homogeneous enhancement. No hydronephrosis. No solid mass. VASCULATURE: No aortic aneurysm. There are aortic atherosclerotic calcifications present. BOWEL: The small bowel loops are normal in caliber. The colon is grossly normal in appearance. No bowel wall thickening or obstruction. APPENDIX: Normal appendix. PERITONEUM: No free fluid. No free air. LYMPH NODES: No enlarged lymph nodes. BLADDER: Well distended and normal in appearance. REPRODUCTIVE: The prostate gland is normal in size with central coarse calcifications. BONES: No acute fracture. Within normal limits for the patient's age. OTHER FINDINGS: There is a small sliding hiatal hernia. There are bilateral small fat containing inguinal hernias. IMPRESSION: Findings are consistent with acute non-specific infectious/inflammatory colitis. No evidence for perforation or abscess. A preliminary report was provided by [employer].
[2019-04-12] MEDS: diltiaZEM 180 mg/24 Hours CD Cap PO SCH (09:34)
[2019-04-12] MEDS ORDERED: Non Formulary Medication (Losartan/Hydrochlorothiazide [Losartan-Hctz 100-25 Mg Tab] 1 TAB PO SCH (10:00)
[2019-04-12] MEDS: Meropenem IV 1 gm in NS 1 GM/50 ML BAG IVPB SCH ×3 (10:20→22:14)
[2019-04-12] MEDS ORDERED: Magnesium Sulfate 2 gm/50 ml 2 GM/50 ML BAG IVPB ONE (11:51)
[2019-04-12] MEDS ORDERED: Morphine 2 mg/ml ISec IVP PRN (11:52)
[2019-04-12] MEDS: FLUTICASONE NEB SCH (17:01)
[2019-04-12] MEDS: VILANTEROL NEB SCH (17:01)
--- NOTE | 2019-04-12 18:20 | CON ---
DATE: 04/12/2019 GASTROENTEROLOGY CONSULTATION REQUESTING PHYSICIAN: Dr. Amanda. REASON FOR CONSULTATION: I have been asked to see this 64-year-old male with a history of hypertension, COPD, combined immune deficiency, neuropathy, who comes to the hospital with one-day history of lower abdominal pain followed by several episodes of rectal bleeding. He last had a colonoscopy approximately two years ago. He has a history of diverticulosis. CT scan of the abdomen and pelvis performed in the emergency room revealed mural thickening of the left colon from the rectum to the splenic flexure with some pericolonic stranding and fluid in the left paracolic gutter as well as diverticulosis in the descending and sigmoid colon. The patient states that his abdominal pain is improved. He had one episode of rectal bleeding last night. He denies any recent travel or ingestion of unusual foods. PAST MEDICAL HISTORY: As above. Again, he has a history of hypertension, GERD, diverticulosis, COPD, immunodeficiency syndrome, monoclonal gammopathy, herniated discs and peripheral neuropathy as well as diverticulosis. SOCIAL HISTORY: He is a former cigarette smoker. He smoked for 30 years, but quit 15 years ago. He denies alcohol abuse. PAST SURGICAL HISTORY: Notable for knee surgery. FAMILY HISTORY: Noncontributory. REVIEW OF SYSTEMS: A 14-point review of systems is notable for lower abdominal pain and rectal bleeding. MEDICATIONS AT HOME: Include Breo Ellipta, gabapentin, losartan, hydrochlorothiazide, Cardizem. PHYSICAL EXAMINATION: GENERAL: Well-developed male lying in bed in no acute distress. VITAL SIGNS: Reveal temperature of 97.9, blood pressure 128/69, heart rate of 82, BMI is 31.2. HEENT: Reveal sclerae to be white. Conjunctivae pink. NECK: Supple. CHEST: Lungs are clear. HEART: Exam reveals regular rate and rhythm. ABDOMEN: Soft. There is mild suprapubic tenderness. There is no rebound. There is no guarding. EXTREMITIES: Show no edema. LABORATORY DATA: Reveal on admission to the hospital his white blood cell count is 18.2, now it is 11.5; hemoglobin 14.1; platelet count 278,000. Electrolytes reveal potassium of 3.4; AST, ALT, BUN, creatinine, bicarb were all normal. 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 RECOMMENDATIONS: 1. Continue on clear liquid diet. 2. Check stool for C&S, O&P and C. diff. 3. Continue IV meropenem. Benigno Lu MD MTDD
--- NOTE | 2019-04-12 21:04 | CON ---
DATE OF CONSULTATION: 04/12/2019 The patient is seen in the emergency room by Dr. Calvin Singh yesterday. CHIEF COMPLAINT: Abdominal pain associated with bright red blood per rectum x1 day duration. HISTORY OF PRESENT ILLNESS: This is a 64-year-old male who has past medical history significant for hypertension, gastroesophageal reflux disease, neuropathy, herniated disks, ex-smoker, knee surgery 10 years ago, admitted with abdominal pain, which is lower abdominal pain. At this time, he states it is completely resolved. He denies any fevers, any chills. No nausea, vomiting, no diarrhea, no urinary frequency. No weight loss. No night sweats. The patient has had a colonoscopy, last one was 2 years ago, which was negative. PAST MEDICAL HISTORY: Significant for ex-smoker, hypertension, GERD, hyperlipidemia, peripheral neuropathy, herniated disk. The patient's past medical history also is significant for monoclonal gammopathy of undetermined significance. PAST SURGICAL HISTORY: Significant for knee surgery 10 years ago. MEDICATIONS AT HOME: Losartan, Neurontin inhaler, Cardizem, Elavil and amitriptyline. ALLERGIES: THE PATIENT IS ALLERGIC TO PENICILLIN. He states when he was a child, he was given a shot of penicillin and he developed fever afterwards, but no other symptoms. He had been having pulmonary symptoms at that time and cough. REVIEW OF SYSTEMS: A 12-point review of systems is performed. PHYSICAL EXAMINATION: GENERAL: The patient is in bed in no acute distress, nontoxic. VITAL SIGNS: Temperature of 98, heart rate of 95, respiratory rate of 18. O2 saturation of 96 on room air. HEENT: Unremarkable. NECK: Supple. LUNGS: Have decreased breath sounds. HEART: Normal S1, S2. ABDOMEN: Soft, nontender. No organomegaly, no rebound, no guarding, no masses. LABORATORY EXAMINATION: White count of 18,200, hemoglobin of 15, platelets of 328,000. BUN of 16, creatinine of 1.0. PSA 0.9. Stool occult blood is positive. Microbiology is pending. CAT scan of abdomen and pelvis is reviewed. Gallbladder is a little distended. No calcified stones. There is colitis, no evidence of perforation or abscess formation. The patient had a chest x-ray, which is negative. ASSESSMENT AND PLAN: A 64-year-old male with 1. Sepsis with colitis, etiology of which is unclear. We will check on the blood cultures and stool cultures. The patient has had stool occult that is positive. We will also order urinalysis and urine cultures as he does have pelvic pain. Blood, stool, urine cultures and stool for C. diff and we will start the patient on meropenem, although his pen allergy is not very convincing, certainly not type 1. We will start the patient empirically on meropenem. We will make further recommendations pending initial culture results and response and GI input. We will order an HIV test because of his age. We will make further recommendations. Review of orders reveals that Dr. Lu is on GI consultation awaiting for GI input. Ezekiel Machado MD
--- NOTE | 2019-04-13 01:58 | PN ---
DATE: 04/12/2019 SUBJECTIVE: The patient is seen in room 565, bed 2. The patient is lying in the bed with the patient's and children at bedside. The patient did have three bowel movements today according to the patient and the nurses. The patient also complains of abdominal pain. PHYSICAL EXAMINATION: VITAL SIGNS: T-max 97.9, pulse 82, respirations 18, O2 sat 94%, blood pressure 128/69, 117/72. HEENT: Head examination, normocephalic and atraumatic. HEENT examination shows pinkish conjunctivae and anicteric sclerae. No oropharyngeal lesions. NECK: No neck rigidity. CHEST: Kyphosis. LUNGS: Show no audible crackles, rales, or wheezing. CARDIOVASCULAR: S1 and S2. Regular rhythm. ABDOMEN: Soft. Positive bowel sounds. Positive left periumbilical, left lower quadrant tenderness. No costovertebral angle tenderness. GENITALIA: Male. RECTAL: Guaiac positive stool. EXTREMITIES: Shows trace swelling of the lower extremity. No pitting edema. No calf tenderness. No Homans' sign. NEUROLOGIC: The patient is alert, awake, oriented x3. He is able to move upper and lower extremity without assistance. Gait examination is not tested. Vascular examination is palpable pulses. Cranial nerves II through XII grossly intact. DIAGNOSTIC: On 04/12/2019, WBC count is down to 11.5 from 18.5, hemoglobin and hematocrit 14.1 and 43.4, platelets 278, granulocytes 82% segs. Sodium 138, potassium 3.4, chloride 103, CO2 of 26, BUN 11, creatinine 1.1, glucose 100, calcium 8.7, phosphorus 3.3, magnesium 1.7. LFTs are within normal limits. Triglycerides 124, cholesterol 136, LDL 86. PSA is 0.9. TSH 6.83, T4 . Stool for occult blood positive. EKG shows old inferior wall myocardial infarction with Q-wave in III and aVF. CAT scan results were reviewed. IMPRESSION: 1. Lower gastrointestinal bleeding with fecal occult blood positive. 2. Diffused left-sided colitis with lower gastrointestinal bleeding and fecal occult blood positive. 3. Leukocytosis with granulocytosis. 4. Borderline hypomagnesemia. 5. Fecal occult blood positive. 6. A 9-mm left adrenal nodule. 7. Right lower lobe atelectasis. 8. Right lower lobe 5 mm pulmonary nodule. 9. Acute nonspecific infectious versus inflammatory colitis of the left colon. 10. Bilateral inguinal hernia. 11. Small umbilical hernia. 12. Leukocytosis with granulocytosis. 13. History of hypertension, hyperlipidemia, hypovitaminosis D. 14. 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 1. Left-sided lower abdominal pain with hematochezia. 2. Severe left-sided colitis with left colonic thick-walled with involvement from the splenic flexure through the rectum with luminal narrowing with pericolonic stranding and fluid in the left paracolic gutter with several descending and sigmoid colon diverticulosis. 3. Left paracolic gutter small fluid. 4. Prostatomegaly and prostate calcification. 5. Rectal bleeding with hematochezia. 6. History of hypertension. 7. History of mild pulmonary hypertension. 8. History of hyperlipidemia. 9. History of hypovitaminosis D. 10. 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 PLAN: The patient is to be continued on IV fluid hydration. The patient is to be continued on broad-spectrum IV antibiotics. The patient was seen by Infectious Disease and Gastroenterology. The patient is now switched over to IV meropenem. The patient is to be continued on pharmacological and non-pharmacological GI and DVT prophylaxis. The patient is to be continued on parenteral analgesic. The patient is to be continued on liquid diet until the patient's symptoms have subsided, then the patient's diet will be increased after GI evaluation and consultation. At present, the patient will be continued on the above therapeutic intervention with daily and close monitoring with daily repeat labs. Continuation of the therapeutic intervention as per the MAR and close Infectious Disease and GI followup. The patient and the and the patient's family have been updated about the patient's condition, diagnosis, treatment plan, possibility of inpatient treatment duration depending upon the patient's clinical condition, hemodynamic status and response to therapy. All above was discussed and explained to the patient and the patient's family at length including the patient and the patient's . All questions and concerns answered. Dictated and electronically signed, not read. Brandyn Amanda MD [email or web address]
[2019-04-13] MEDS: Lactated Ringer's 1,000 ML IV SCH ×2 (02:20→18:16)
[2019-04-13] MEDS: metroNIDAZOLE IV 500 mg/100 ml 500 MG/100 ML BAG IVPB SCH ×3 (06:10→21:32)
[2019-04-13] MEDS: Meropenem IV 1 gm in NS 1 GM/50 ML BAG IVPB SCH ×3 (06:10→21:32)
--- NOTE | 2019-04-13 07:17 | CARD ---
APPROVED REPORT Date of service: 04/11/2019 EKG Measurement Heart [id number] <Conclusion> Normal sinus rhythm Inferior infarct, age undetermined Abnormal ECG
[2019-04-13 08:04] LABS: BASO # 0.04 K/mm3 (0.0-2.0); BASO % 0.4 % (0.0-3.0); EOS # 0.1 (0.0-0.7); EOS % 0.5 % (1.5-5.0); HEMOGLOBIN 13.7 g/dL (14.0-18.0); LYMPH # 1.6 (1.2-3.4); LYMPH % 14.7 % (22.0-35.0); MEAN CELL VOLUME 88.2 fl (80.0-105.0); MEAN CORPUSCULAR HEMOGLOBIN 28.8 pg (25.0-35.0); MEAN CORPUSCULAR HGB CONC 32.6 g/dl (31.0-37.0); MEAN PLATELET VOLUME 9.3 fl (7.0-11.0); MONO # 0.6 (0.1-0.6); MONO % 5.1 % (1.0-6.0); RBC 4.76 10^6/uL (3.5-6.1); WHITE BLOOD COUNT 11.1 10^3/uL (4.5-11.0)
[2019-04-13 08:27] LABS: ALB/GLOB RATIO 1.1 (1.1-1.8); ALBUMIN 3.4 g/dL (3.0-4.8); ALT/SGPT 31 U/L (7-56); AST/SGOT 28 U/L (17-59); BILIRUBIN,DIRECT 0.2 mg/dL (0.0-0.4); BLOOD UREA NITROGEN 10 mg/dL (7-21); CALCIUM 8.9 mg/dL (8.4-10.5); GFR NON-AFRICAN AMERICAN > 60
[2019-04-13] MEDS: diltiaZEM 180 mg/24 Hours CD Cap PO SCH (09:33)
--- NOTE | 2019-04-13 09:45 | CP.PCM.PN ---
Subjective - Date & Time of Evaluation Date of Evaluation: 04/13/19 Time of Evaluation: 07:00 - Subjective Subjective: Denice Guevara DO, PGY-2: Progress Note for Dr. Amanda Patient was seen and examined at bedside. Patient reports passing a BM yesterday morning that was mostly consistent with blood, but since that time not passing a BM or observing any more bright red blood per rectum. He denies any dyspnea, abdominal pain, nausea, vomiting, or diarrhea. He reports tolerating his diet fine. On a subsequent encounter, the patient reports having periodic bloody stools per rectum today. Objective - Vital Signs/Intake and Output Vital Signs (last 24 hours): Temp Pulse Resp BP Pulse Ox 98.2 F 91 H 20 133/84 95 04/12/19 22:00 04/13/19 09:33 04/12/19 22:00 04/13/19 09:33 04/12/19 22:00 Intake and Output: 04/13/19 04/13/19 06:59 18:59 Intake Total 540 Balance 540 - Medications Medications: Current Medications Acetaminophen (Tylenol 325mg Tab) 650 mg PO Q6 PRN PRN Reason: TEMP>=99.5F Amitriptyline HCl (Elavil) 50 mg PO HS [facility] Last Admin: 04/12/19 22:40 Dose: 50 mg Diltiazem HCl (Cardizem Cd) 180 mg PO DAILY [facility] Last Admin: 04/13/19 09:33 Dose: 180 mg Docusate Sodium (Colace) 100 mg PO TID [facility] Last Admin: 04/12/19 17:07 Dose: 100 mg Gabapentin (Neurontin) 600 mg PO 1000,1700,2200 [facility]; Protocol Last Admin: 04/13/19 09:32 Dose: 600 mg Home Med (Home Med) 1 unit NEB DAILY [facility] Last Admin: 04/12/19 17:01 Dose: 1 unit Metronidazole (Flagyl) 500 mg in 100 mls @ 100 mls/hr IVPB Q8 [facility]; Protocol Last Admin: 04/13/19 06:10 Dose: 100 mls/hr Lactated Ringer's (Lactated Ringer's) 1,000 mls @ 100 mls/hr IV .Q10H NITIN Last Admin: 04/13/19 02:20 Dose: 100 mls/hr Meropenem (Merrem Iv 1 Gm Premix) 1 gm in 50 mls @ 100 mls/hr IVPB Q8 [facility]; Protocol Stop: 04/21/19 09:46 Last Admin: 04/13/19 06:10 Dose: 100 mls/hr Morphine Sulfate (Morphine) 2 mg IVP Q4H PRN PRN Reason: Pain, moderate (4-7) Ondansetron HCl (Zofran Inj) 4 mg IVP Q4H PRN PRN Reason: Nausea/Vomiting Pantoprazole Sodium (Protonix Inj) 40 mg IVP Q12 [facility] Last Admin: 04/13/19 09:32 Dose: 40 mg Sennosides (Senokot Tab) 17.2 mg PO HS [facility] Last Admin: 04/12/19 22:22 Dose: 17.2 mg - Labs Labs: 04/13/19 07:50 04/13/19 07:50 PT 11.7 SECONDS (9.4-12.5) 04/11/19 17:00 INR 1.05 04/11/19 17:00 APTT 31.8 Seconds (26.9-38.3) 04/11/19 17:00 - Constitutional Appears: Well, Non-toxic - Head Exam Head Exam: ATRAUMATIC, NORMOCEPHALIC - Eye Exam Eye Exam: EOMI, Normal appearance - ENT Exam ENT Exam: Mucous Membranes Moist, Normal Oropharynx - Neck Exam Neck Exam: Normal Inspection - Respiratory Exam Respiratory Exam: Clear to Ausculation Bilateral, NORMAL BREATHING PATTERN. absent: Accessory Muscle Use - Cardiovascular Exam Cardiovascular Exam: RRR, +S1, +S2 - GI/Abdominal Exam GI & Abdominal Exam: Soft, Normal Bowel Sounds. absent: Tenderness, Rebound - Extremities Exam Extremities Exam: Normal Inspection. absent: Calf Tenderness - Neurological Exam Neurological Exam: Alert, Awake, Oriented x3 - Psychiatric Exam Psychiatric exam: Normal Affect, Normal Mood - Skin Skin Exam: Dry, Intact, Normal Color, Warm Assessment and Plan - Assessment and Plan (Free Text) Assessment: 64 year old male, whose PMHx includes HTN, HLD, GERD, Peripheral Neuropathy, and herniated discs who presented to the ED complaining of lower abdominal pain with associated bloating and bright red blood per rectum. CT A/P showed findings are consistent with acute non-specific infectious/inflammatory colitis. No evidence for perforation or abscess . Patient will be admitted to med/surg. Plan: LLQ Abdominal Pain and BRBPR 2/2 Left Sided Colitis and Divertulosis - Findings are consistent with acute non-specific infectious/inflammatory colitis. No evidence for perforation or abscess - Flagyl and merropem as per ID - Liquid diet, advance diet as tolerated - IVF with LR @ 100cc/hr - zofran 4 mg q4h prn - PTX 40mg IV BID - blood cx are negative x 2 - leukocytosis trending down from 18,000 to 11,000 today - PSA level 0.9 - GI on consult (Dr. Lu) - ID on consult (Dr. Machado) HTN - resume home med cardizem Peripheral Neuropathy - resume home med gabapentin and amitriptyline ppx: - SCD - PTX 40mg IV BID Diet: Liquid Dispo: Monitor patient closely on med/surg. Case was review and discussed with attending physician, Dr. Amanda
--- NOTE | 2019-04-13 13:13 | PN ---
DATE: 04/13/2019 SUBJECTIVE: The patient is in room 565, bed 2. Overnight nurse's notes were reviewed. The patient has been found to be out of bed ambulating. Yesterday the patient had two to three bowel movements with blood. Which was reported by the patient and the nurses. Today patient had 2 bowel movements with blood in the bowel movements. PHYSICAL EXAMINATION: VITAL SIGNS: T-max 98.2, heart rate 90, blood pressure 113/73, respirations 20, O2 sat 95%. HEENT: Head is normocephalic, atraumatic. Eyes; shows pinkish pale conjunctivae. Anicteric sclerae. No oropharyngeal lesion. NECK: No neck rigidity. CHEST: Kyphosis. LUNGS: Shows no audible crackle, rales or wheezing. CARDIOVASCULAR: S1, S2, regular rhythm. No audible murmur, gallop, or rub. ABDOMEN: Soft, positive bowel sound. No palpable hepatosplenomegaly. Positive left lower quadrant and left periumbilical tenderness. No costovertebral angle tenderness. GENITALIA: Male. RECTAL: Deferred. EXTREMITIES: Shows no pitting edema, no calf tenderness, no Homans' sign. NEUROLOGIC: The patient is alert, awake, oriented x3. Cranial nerves II-XII intact. Gait examination is not tested. Vascular examination, palpable pulses. DIAGNOSTIC: On 04/13/2019; WBC count is down to 11.1 from 18,000, hemoglobin/hematocrit 13.7, 42.0, down from 15, hemoglobin 15, platelet 264. Sodium 40, potassium 5.1, chloride 103, CO2 of 32, BUN and creatinine 1.1, glucose 104, calcium 8.9, phosphorus 3.1, magnesium 2.1. LFTs are within normal limit. Vitamin D 25 hydroxy 21.8. IMPRESSION: 1. Sepsis with severe left-sided diffuse colitis and lower gastrointestinal bleeding. 2. left-sided abdominal pain secondary to left-sided colitis. 3. Leukocytosis with granulocytosis. 4. Mild normocytic anemia. 5. Mild borderline hyperkalemia. 6. History of hypertension. 7. History of hyperlipidemia. 8. History of hypovitaminosis D. 9. History of monoclonal gammopathy of unknown significance with polyneuropathy. 10. Deconditioning. 1. Lower gastrointestinal bleeding with fecal occult blood positive. 2. Diffused left-sided colitis with lower gastrointestinal bleeding and fecal occult blood positive. 3. Leukocytosis with granulocytosis. 4. Borderline hypomagnesemia. 5. Fecal occult blood positive. 6. A 9-mm left adrenal nodule. 7. Right lower lobe atelectasis. 8. Right lower lobe 5 mm pulmonary nodule. 9. Acute nonspecific infectious versus inflammatory colitis of the left colon. 10. Bilateral inguinal hernia. 11. Small umbilical hernia. 12. Leukocytosis with granulocytosis. 13. History of hypertension, hyperlipidemia, hypovitaminosis D. 14. 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 1. Left-sided lower abdominal pain with hematochezia. 2. Severe left-sided colitis with left colonic thick-walled with involvement from the splenic flexure through the rectum with luminal narrowing with pericolonic stranding and fluid in the left paracolic gutter with several descending and sigmoid colon diverticulosis. 3. Left paracolic gutter small fluid. 4. Prostatomegaly and prostate calcification. 5. Rectal bleeding with hematochezia. 6. History of hypertension. 7. History of mild pulmonary hypertension. 8. History of hyperlipidemia. 9. History of hypovitaminosis D. 10. 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 PLAN: At this time, the patient is to be continued on IV fluid, IV antibiotics as per infectious disease. The patient is on IV meropenem. The patient will be continued on pharmacological, non-pharmacological GI DVT prophylaxis. The patient has been ordered out of bed to chair ad nahum. The patient has been ordered repeat serial labs. The patient will be continued on liquid diet. The patient will be monitored with above clinical condition and the subjective and objective data. The patient has been updated about his condition, diagnosis, test results. Recommendations at length and all questions concerned answered. The patient's further management will be dependent upon the patient's clinical condition, hemodynamic status and as per the patient response to therapeutic intervention and as per recommendation by Infectious Disease and Gastroenterology. The patient has been updated about his condition, diagnosis, test results and the recommendation by all the subspecialty has been re-enforced the patient. Dictated and electronically signed, not read. Brandyn Vasiliy, MD [facility] # [id number] EUN[place]
--- NOTE | 2019-04-13 14:51 | PN ---
DATE: 04/13/2019 SUBJECTIVE: The patient is sitting up in bed. He states that he feels better. His abdominal pain has nearly subsided. He had two episodes of bloody bowel movements this morning. He denies any chest pain, shortness of breath, fevers or chills. Again, he states that his abdominal cramps are much improved. PHYSICAL EXAMINATION: VITAL SIGNS: Reveal temperature of 98.2, blood pressure 133/84, heart rate of 91. HEENT: Reveals sclerae to be white. Conjunctivae pink. NECK: Supple. HEART: Reveals regular rate and rhythm. CHEST: Lungs are clear. ABDOMEN: Soft, nontender. No mass. EXTREMITIES: Show no edema. LABORATORY DATA: Revealed. Laboratory data reveal white blood cell count down to 11.1. Chemistries reveal potassium of 5.1, BUN 10, creatinine 1.1, bicarb of 32. IMPRESSION: A 64-year-old male admitted with an acute onset of lower abdominal pain associated with several episodes of rectal bleeding and CT scan of the abdomen and pelvis reveal mural thickening of the descending sigmoid colon and rectum. This is all consistent with an acute self-limited colitis. There is no stool available for C and S, O and P and C. diff. He does have a history of combined immunodeficiency syndrome, on IV immunoglobulin infusions. RECOMMENDATIONS: 1. Continue IV antibiotics. 2. We will continue on IV fluids and clear liquids. 3. Await stool for C and S, O and P and C. diff. Benigno Lu MD
[2019-04-13] MEDS: VILANTEROL NEB SCH (18:13)
[2019-04-13] MEDS: FLUTICASONE NEB SCH (18:13)
--- NOTE | 2019-04-14 00:45 | PN ---
DATE: 04/13/2019 SUBJECTIVE: The patient is in bed. OBJECTIVE: VITAL SIGNS: Temperature of 98, blood pressure is 130/80, respiratory rate of 16. HEENT: Unremarkable. NECK: Supple. LUNGS: Have decreased breath sounds. HEART: Normal S1, S2. ABDOMEN: Soft. LABORATORY EXAMINATION: Reveals a white count of 11,000. Chemistries are noted. Microbiology is reviewed. Blood cultures are negative. Review of orders reveals the patient to be on meropenem. ASSESSMENT AND PLAN: This is a 64-year-old male who was seen earlier today in 565, bed 2 who had sepsis and colitis, etiology is unclear. Waiting for stool cultures. Dr. Lu's note is reviewed. We will check on the stool cultures. Ezekiel Machado MD
[2019-04-14] MEDS: Lactated Ringer's 1,000 ML IV SCH ×2 (04:07→18:40)
[2019-04-14] MEDS: metroNIDAZOLE IV 500 mg/100 ml 500 MG/100 ML BAG IVPB SCH ×3 (05:11→22:58)
[2019-04-14] MEDS: Meropenem IV 1 gm in NS 1 GM/50 ML BAG IVPB SCH ×3 (05:11→21:24)
[2019-04-14 07:01] LABS: BASO # 0.06 K/mm3 (0.0-2.0); BASO % 0.7 % (0.0-3.0); EOS # 0.1 (0.0-0.7); EOS % 1.5 % (1.5-5.0); HEMOGLOBIN 12.6 g/dL (14.0-18.0); LYMPH # 0.7 (1.2-3.4); MEAN CELL VOLUME 88.7 fl (80.0-105.0); MEAN CORPUSCULAR HGB CONC 31.6 g/dl (31.0-37.0); MEAN PLATELET VOLUME 9.4 fl (7.0-11.0); MONO # 1.4 (0.1-0.6); MONO % 15.1 % (1.0-6.0); RBC 4.5 10^6/uL (3.5-6.1); RED CELL DISTRIBUTION WIDTH 14.8 % (11.5-14.5); WHITE BLOOD COUNT 9.2 10^3/uL (4.5-11.0)
[2019-04-14 07:13] LABS: ALT/SGPT 28 U/L (7-56); AST/SGOT 28 U/L (17-59); BILIRUBIN,DIRECT 0.2 mg/dL (0.0-0.4); BLOOD UREA NITROGEN 9 mg/dL (7-21); CALCIUM 8.6 mg/dL (8.4-10.5); GFR NON-AFRICAN AMERICAN > 60
[2019-04-14] MEDS: diltiaZEM 180 mg/24 Hours CD Cap PO SCH (10:25)
--- NOTE | 2019-04-14 13:30 | PN ---
DATE: 04/14/2019 SUBJECTIVE: The patient is sitting in bed comfortable. He denies any further rectal bleeding. His nurse states that he had a formed bowel movement this morning. He still has occasional lower abdominal cramps. PHYSICAL EXAMINATION: VITAL SIGNS: Reveal temperature of 97.9, blood pressure 123/74, heart rate 76. HEENT: Reveal sclerae to be white. Conjunctivae pink. NECK: Supple. HEART: Reveals regular rate and rhythm. LUNGS: Reveal lungs to be clear. ABDOMEN: Soft. Mild suprapubic tenderness. No rebound or guarding. EXTREMITIES: Show no edema. LABORATORY DATA: Reveal white blood cell count 9.2, hemoglobin 12.6, platelet count 253,000. Chemistries reveal potassium 4.5, normal electrolytes. IMPRESSION: Acute colitis, most likely self-limited colitis. The patient has not had any further rectal bleeding in his bowel movements of becoming more formed. RECOMMENDATIONS: We will advance to a low-fat soft low-residue diet. If tolerated and the patient has no further bleeding, hopefully he can be discharged home in the next 24 hours. Benigno Lu MD
--- NOTE | 2019-04-14 13:48 | PN ---
DATE: 04/14/2019 SUBJECTIVE: The patient is in bed in no acute distress. His diarrhea is improved. He has formed stools. more formed. PHYSICAL EXAMINATION: VITAL SIGNS: Temperature 98, blood pressure 120/70, respiratory rate 16. HEENT: Examination of HEENT is unremarkable. NECK: Supple. LUNGS: Decreased breath sounds. HEART: Normal S1, S2. ABDOMEN: Soft. LABORATORY DATA: Laboratory examination reveals the patient's white count is down to 9.2, hemoglobin of 12, platelets of 253. Chemistries reveals a BUN of 9, creatinine of 1. Stool occult that is positive. Serology for HIV is negative. Microbiology, blood cultures are negative. Stool cultures are pending. The patient is currently on meropenem. ASSESSMENT AND PLAN: This is a 64-year-old male with sepsis and acute colitis, etiology of this is not clear. We will check on the stool cultures, may be able to switch to oral Cipro, oral Flagyl. To complete therapy for 5-7 days Ezekiel Machado MD
--- NOTE | 2019-04-14 16:36 | PN ---
DATE: 04/14/2019 SUBJECTIVE: The patient is seen in room . The patient is also seen ambulating on the floor. In the last 24 hours, the patient yesterday had 2 bowel movements with blood, but today the patient had 2 bowel movements, which were watery and no blood was noted as per the patient and the nurses. The patient denies any nausea, vomiting, denies any hemoptysis and hematemesis and no upper GI bleeding documented. PHYSICAL EXAMINATION: VITAL SIGNS: T-max 98.2, pulse 76, blood pressure 123/74, respirations 18, O2 sat 94%. HEAD: Normocephalic, atraumatic. HEENT: Shows pinkish conjunctivae. Anicteric sclerae. No oropharyngeal lesion. No neck rigidity. CHEST: Kyphosis. LUNGS: Shows no audible crackle, rales or wheezing. CARDIOVASCULAR: S1 and S2, regular rhythm. No audible murmur, gallop or rub at this time. ABDOMEN: Soft, positive bowel sounds, positive left periumbilical left lower quadrant left suprapubic area and left periumbilical left lower quadrant deep tenderness noted. No rebound tenderness noted. Positive voluntary guarding noted. No costovertebral angle tenderness noted. GENITALIA: Male. RECTAL: Deferred. EXTREMITIES: Shows no pitting edema, no no Homans' sign. The patient is re-advised and reinforced to have the MIGEU stockings on during the daytime. MUSCULOSKELETAL: As per the body mass index. NEUROLOGIC: The patient is alert, awake, responsive, is able to move upper and lower extremity without assistance. GAIT: Independent. Cranial nerves II-XII intact. DIAGNOSTIC DATA: 04/14/2019; WBC 9.2, hemoglobin/hematocrit 12.6/39.9, platelet 253, granulocyte 75% segs. Sodium 141, potassium 4.5, chloride 106, CO2 of 30, BUN 9, creatinine 1, glucose 88, calcium 8.6, phosphorus 3.4, magnesium 2. Repeat stool tests; fecal occult blood x2 is positive. Stool cultures, stool C. diff and other stool studies are pending. IMPRESSION: 1. Severe left-sided colitis with lower gastrointestinal bleeding. 2. Sepsis secondary to colitis with leukocytosis and granulocytosis. 3. Anemia with decreasing hemoglobin/hematocrit. 4. Granulocytosis. 5. Lower gastrointestinal bleeding. 6. Acute left-sided colitis. 7. Abdominal pain secondary to colitis. 8. History of hypertension, presently normotensive. 9. History of combined immune polyneuropathy, presently on IV gammaglobulin treatment. 10. Hypovitaminosis D. 11. History of hypertension, hyperlipidemia and hypovitaminosis D. 12. History of gastroesophageal reflux disease. PLAN: At this time, the patient is to be continued on IV fluid. The patient is to be continued on infectious disease recommendation. The patient is to be continued on pharmacological, non-pharmacological, GI and DVT prophylaxis. The patient is to be continued on clear liquid diet as per the GI recommendation. The patient is to be continued on out of bed to chair, ambulate ad nahum. The patient is to be continued on physical therapy. The patient is to be continued on all the therapeutic intervention as per the MAR. The patient has been updated about his condition, diagnosis, diagnostic test results, recommendations from all the physicians were reinforced, explained to the patient in length and all questions concerned answered to his satisfaction. At present, the patient will be continued on the above therapeutic intervention. The patient's discharge is dependent upon the patient's advancement of diet and resolution of the patient's symptoms of colitis including gastrointestinal bleeding and abdominal pain symptoms and the patient's discharge is also dependent on clearance by Gastroenterology and Infectious Disease. Dictated and electronically signed, not read. Brandyn Amanda MD
[2019-04-14] MEDS: VILANTEROL NEB SCH (17:03)
[2019-04-14] MEDS: FLUTICASONE NEB SCH (17:03)
[2019-04-14] MEDS: Pantoprazole 40 mg EC Tab PO SCH (22:52)
[2019-04-14 23:05] VITALS: O2SAT 92
[2019-04-15] MEDS: Meropenem IV 1 gm in NS 1 GM/50 ML BAG IVPB SCH (05:01)
[2019-04-15] MEDS: metroNIDAZOLE IV 500 mg/100 ml 500 MG/100 ML BAG IVPB SCH (05:32)
--- NOTE | 2019-04-15 07:02 | CP.PCM.PN ---
Subjective - Date & Time of Evaluation Date of Evaluation: 04/15/19 Time of Evaluation: 06:59 - Subjective Subjective: Denice Guevara DO, PGY-2: Progress Note for Dr. Amanda Patient was seen and examined at bedside. He was sleeping comfortably. Nurse reports no adverse events overnight. He is tolerating his diet fine. Objective - Vital Signs/Intake and Output Vital Signs (last 24 hours): Temp Pulse Resp BP Pulse Ox 98.9 F 82 18 136/84 92 L 04/14/19 23:04 04/14/19 23:04 04/14/19 23:04 04/14/19 23:04 04/14/19 23:04 Intake and Output: 04/14/19 04/15/19 18:59 06:59 Intake Total 620 660 Output Total 0 Balance 620 660 - Medications Medications: Current Medications Acetaminophen (Tylenol 325mg Tab) 650 mg PO Q6 PRN PRN Reason: TEMP>=99.5F Amitriptyline HCl (Elavil) 50 mg PO HS [facility] Last Admin: 04/14/19 22:56 Dose: 50 mg Ciprofloxacin (Cipro) 500 mg PO Q12 [facility]; Protocol Stop: 04/20/19 10:01 Diltiazem HCl (Cardizem Cd) 180 mg PO DAILY [facility] Last Admin: 04/14/19 10:25 Dose: 180 mg Gabapentin (Neurontin) 600 mg PO 1000,1700,2200 [facility]; Protocol Last Admin: 04/14/19 22:44 Dose: 600 mg Home Med (Home Med) 1 unit NEB DAILY [facility] Last Admin: 04/14/19 17:03 Dose: 1 unit Lactated Ringer's (Lactated Ringer's) 1,000 mls @ 100 mls/hr IV .Q10H [facility] Last Admin: 04/14/19 18:40 Dose: 100 mls/hr Metronidazole (Flagyl) 500 mg PO Q8 [facility]; Protocol Stop: 04/20/19 14:01 Morphine Sulfate (Morphine) 2 mg IVP Q4H PRN PRN Reason: Pain, moderate (4-7) Ondansetron HCl (Zofran Inj) 4 mg IVP Q4H PRN PRN Reason: Nausea/Vomiting Pantoprazole Sodium (Protonix Ec Tab) 40 mg PO Q12 [facility] Last Admin: 04/14/19 22:52 Dose: 40 mg - Labs Labs: 04/14/19 06:30 04/14/19 06:30 PT 11.7 SECONDS (9.4-12.5) 04/11/19 17:00 INR 1.05 04/11/19 17:00 APTT 31.8 Seconds (26.9-38.3) 04/11/19 17:00 - Constitutional Appears: Well, Non-toxic - Head Exam Head Exam: ATRAUMATIC, NORMOCEPHALIC - Eye Exam Eye Exam: EOMI, Normal appearance - ENT Exam ENT Exam: Mucous Membranes Moist, Normal Oropharynx - Neck Exam Neck Exam: Normal Inspection - Respiratory Exam Respiratory Exam: NORMAL BREATHING PATTERN. absent: Accessory Muscle Use - Cardiovascular Exam Cardiovascular Exam: RRR, +S1, +S2 - GI/Abdominal Exam GI & Abdominal Exam: Soft, Normal Bowel Sounds. absent: Tenderness, Rebound - Extremities Exam Extremities Exam: Normal Inspection. absent: Calf Tenderness - Back Exam Back Exam: NORMAL INSPECTION - Neurological Exam Neurological Exam: Alert, Awake, Oriented x3 - Psychiatric Exam Psychiatric exam: Normal Affect, Normal Mood - Skin Skin Exam: Dry, Intact, Normal Color, Warm Assessment and Plan - Assessment and Plan (Free Text) Assessment: 64 year old male, whose PMHx includes HTN, HLD, GERD, Peripheral Neuropathy, and herniated discs who presented to the ED complaining of lower abdominal pain with associated bloating and bright red blood per rectum. CT A/P showed findings are consistent with acute non-specific infectious/inflammatory colitis. No evidence for perforation or abscess. Plan: LLQ Abdominal Pain and BRBPR 2/2 Left Sided Colitis and Divertulosis - Findings are consistent with acute non-specific infectious/inflammatory colitis. No evidence for perforation or abscess - Flagyl and merropem as per ID - ID recommends outpatient Metronidazole 500 mg q8h and Ciprofloxacin 500 q12h for a total of 5-7 days - patient tolerated low fat, low residue diet - IVF with LR @ 100cc/hr - zofran 4 mg q4h prn - PTX 40mg IV BID - blood cx are negative x 2 - leukocytosis trending down from 18,000 to 9,200 today - PSA level 0.9 - GI on consult (Dr. Lu) - ID on consult (Dr. Machado) HTN - resume home med cardizem Peripheral Neuropathy - resume home med gabapentin and amitriptyline ppx: - SCD - PTX 40mg IV BID Case was review and discussed with attending physician, Dr. Amanda
[2019-04-15 07:13] LABS: BASO # 0.03 K/mm3 (0.0-2.0); BASO % 0.5 % (0.0-3.0); EOS # 0.2 (0.0-0.7); EOS % 2.7 % (1.5-5.0); HEMOGLOBIN 12.2 g/dL (14.0-18.0); LYMPH % 15.8 % (22.0-35.0); MEAN CELL VOLUME 88.5 fl (80.0-105.0); MEAN CORPUSCULAR HEMOGLOBIN 28.2 pg (25.0-35.0); MEAN CORPUSCULAR HGB CONC 31.9 g/dl (31.0-37.0); MEAN PLATELET VOLUME 9.2 fl (7.0-11.0); MONO # 1.1 (0.1-0.6); MONO % 17.1 % (1.0-6.0); RBC 4.33 10^6/uL (3.5-6.1); RED CELL DISTRIBUTION WIDTH 14.8 % (11.5-14.5); WHITE BLOOD COUNT 6.2 10^3/uL (4.5-11.0)
[2019-04-15 07:40] LABS: ALT/SGPT 34 U/L (7-56); AST/SGOT 26 U/L (17-59); BILIRUBIN,DIRECT 0.2 mg/dL (0.0-0.4); BLOOD UREA NITROGEN 11 mg/dL (7-21); CALCIUM 8.5 mg/dL (8.4-10.5); GFR NON-AFRICAN AMERICAN > 60
[2019-04-15 07:57] VITALS: BP 129/81; PULSE 73; RESP 19; TEMP 98.3
[2019-04-15] MEDS: VILANTEROL NEB SCH (09:55)
[2019-04-15] MEDS: FLUTICASONE NEB SCH (09:55)
[2019-04-15] MEDS: diltiaZEM 180 mg/24 Hours CD Cap PO SCH (09:56)
[2019-04-15] MEDS: Pantoprazole 40 mg EC Tab PO SCH (09:56)
--- NOTE | 2019-04-15 10:24 | PN ---
DATE: 04/15/2019 SUBJECTIVE: The patient is in bed in no acute distress. PHYSICAL EXAMINATION: VITAL SIGNS: On exam, temperature is 98, blood pressure is 136/80, respiratory rate of 18. HEENT: Unremarkable. NECK: Supple. LUNGS: Have decreased breath sounds. HEART: Normal, S1 and S2. ABDOMEN: Soft. LABORATORY DATA: Reveals the blood cultures negative. White count of 9.2. BUN of 9, creatinine of 1.0. The stool cultures have no growth.. Blood cultures are negative, although parasites are negative. QTc on EKG is 423. ASSESSMENT AND PLAN: This is a 64-year-old male who was admitted with sepsis, acute colitis, etiology is unclear. We will switch to p.o. Flagyl and p.o. Cipro. The patient need a colonoscopy. Both p.o. Flagyl and Cipro will be ordered for 5 days. We will discontinue the intravenous antibiotics. Ezekiel Machado MD
[2019-04-15 13:18] LABS: GLYCOMARK(R) 16.6 mcg/mL (7.3-36.6)
--- NOTE | 2019-04-15 13:50 | PN ---
DATE: 04/15/2019 SUBJECTIVE: The patient is sitting in bed. He is tolerating solid foods. He denies any further rectal bleeding. He has not had a bowel movement since yesterday evening, diarrhea is less. He denies any nausea, vomiting. He denies any abdominal pain. PHYSICAL EXAMINATION: VITAL SIGNS: Reveal temperature of 98.3, blood pressure 129/81, heart rate of 73. HEENT: Reveal sclerae to be white. Conjunctivae pink. NECK: Supple. CHEST: Lungs are clear. HEART: Reveals regular rate and rhythm. ABDOMEN: Soft, nontender. No mass. EXTREMITIES: Show no edema. LABORATORY DATA: Reveal white blood cell count 6.2, hemoglobin 12.2. Chemistries reveal normal electrolytes. Stool for C&S, O&P and C. diff for all negative. IMPRESSION: Acute self-limited colitis with rectal bleeding. He has not had any further rectal bleeding in 48 hours. He is tolerating solid foods, stool culture and sensitivity, ova and parasite and Clostridium difficile were all negative. RECOMMENDATIONS: The patient can be discharged home on a soft diet. I do not believe he needs any further antibiotics. He can be followed up in my office next week. Benigno Lu MD
--- NOTE | 2019-04-15 23:22 | DS ---
FINAL PROGRESS NOTE AND DISCHARGE SUMMARY HISTORY OF PRESENT ILLNESS: The patient is seen in room 565, bed 2. Overnight nurse's notes were reviewed. The patient had multiple bowel movements. No bloody bowel movement was documented. The patient denies any chest pain or shortness of breath. Denies nausea or vomiting. Denies hemoptysis or hematemesis. The patient states that his abdominal pain is significantly resolved. The patient was yesterday started on altered GI hepatic diet, which the patient tolerated. PHYSICAL EXAMINATION: VITAL SIGNS: T-max 98.9, heart rate 73 to 82, blood pressure 129/81 to 136/84, respirations 18, and O2 sat 95%. HEENT: Head; normocephalic and atraumatic. HEENT examination shows pinkish conjunctivae. Anicteric sclerae. No oropharyngeal lesion. NECK: No neck rigidity. CHEST: Kyphosis. LUNGS: Shows no audible crackle, rales, or wheezing. CARDIOVASCULAR: S1 and S2, regular rhythm. ABDOMEN: Soft. Positive bowel sounds. Very mild deep left periumbilical tenderness and no left lower quadrant tenderness. No rebound tenderness. No costovertebral angle tenderness. No guarding. No rigidity. GENITALIA: Male. RECTAL: Deferred. EXTREMITIES: Shows no pitting edema. No calf tenderness. No Homans' sign. NEUROLOGIC: The patient is alert, awake and oriented x3. He is able to move upper and lower extremity without assistance. Gait examination is independent. VASCULAR: Palpable pulses. Cranial nerves II through XII grossly intact. MUSCULOSKELETAL: As per the body mass index. DIAGNOSTIC DATA: On 04/15/2019; WBC count 6.2, hemoglobin/hematocrit 12.2 and 38.3, and platelet 249. Stool cultures, C. diff, and ova and parasite all negative. Blood and urine cultures negative. Sodium 141, potassium 4.1, chloride 107, CO2 of 29, BUN 11, creatinine 1, glucose 88, and rest of the LFTs are normal. FINAL IMPRESSION, PLAN, AND DISCHARGE DIAGNOSES: 1. Sepsis secondary to severe left-sided colitis. 2. Lower gastrointestinal bleeding with anemia. 3. Anemia with decreasing hemoglobin and hematocrit. 4. Possible acute blood loss anemia secondary to lower gastrointestinal bleeding secondary to severe left-sided colitis. 5. Left-sided and left lower quadrant abdominal pain secondary to severe left-sided colitis. 6. History of hypertension and hyperlipidemia. 7. 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 Plan at this time, the patient was seen by Gastroenterology and Infectious Disease. Their recommendations were noted and explained to the patient, which he acknowledged and understand. The patient can be switched to p.o. antibiotic to Cipro and p.o. Flagyl. The patient was changed over to altered GI hepatic diet, which the patient has been tolerating. The patient will be considered for discharge. The patient will be discharged with close followup in the office within 1 week. The patient's discharge medications will be resumption of his home medications including Hyzaar, Cardizem, Crestor, vitamin D, and Elavil and the patient will be given new prescription for ciprofloxacin 500 mg twice a day for seven more days to complete 10 days of total therapy and Flagyl 500 mg three times a day for seven more days to complete 10 days of therapy. During this hospitalization, the patient was extensively explained about the details of his medical condition, diagnosis, test results, and recommendations. Discharge follow up with Dr. Amanda within 1 week. Discharge follow up with Dr. Lu within 1 week.. During this hospitalization, the patient was extensively explained. Time spent in the entire discharge process more than 45 minutes. Dictated and electronically signed, not read. Brandyn Amanda MD
== END 2019-04-15 14:17 | disposition home or self-care (01) | DRG 872 ==
LOC: ED 16:35 → ERH 21:58 → 5RSO 23:31 → 5RNO 23:36
PROVIDERS: ADMIT Internal Medicine; ATTEND Internal Medicine
DX: A41.9 Sepsis, unspecified organism (principal); K51.50 Left sided colitis without complications; K92.1 Melena; D62 Acute posthemorrhagic anemia; D81.9 Combined immunodeficiency, unspecified; J98.11 Atelectasis; D47.2 Monoclonal gammopathy; G62.9 Polyneuropathy, unspecified; I10 Essential (primary) hypertension; K57.30 Diverticulosis of large intestine without perforation or abscess without bleeding; E55.9 Vitamin D deficiency, unspecified; I27.20 Pulmonary hypertension, unspecified; J44.9 Chronic obstructive pulmonary disease, unspecified; K21.9 Gastro-esophageal reflux disease without esophagitis; E78.5 Hyperlipidemia, unspecified; K42.9 Umbilical hernia without obstruction or gangrene; K40.20 Bilateral inguinal hernia, without obstruction or gangrene, not specified as recurrent; R91.1 Solitary pulmonary nodule; Z87.891 Personal history of nicotine dependence; Z88.0 Allergy status to penicillin